=== PATIENT | male | born 1980 | race Caucasian/White ===

== ENCOUNTER 2021-07-27 19:41 | Inpatient (IN) | payer OTHER, SELFPAY ==
[2021-07-27 21:46] LABS: #Lymphocytes 2.6 thou/uL (1.20-3.40); %Eosinophils 1.9 % (0.0-10.0); %Lymphocytes 41.4 % (21.0-51.0); %Monocytes 7.5 % (0.0-10.0); %Neutrophils 48.1 % (42.0-75.0); Hemoglobin 16.4 g/dL (14.0-18.0); Mean Corpuscular HGB CONC 33.7 g/dL (32.0-36.0); Mean Corpuscular Hemoglobin 30.7 pg (27.0-31.0); Platelet Count 273 thou/uL (130-400); RBC Distribution Width 12.6 % (11.5-14.5); Red Blood Cell (RBC) Count 5.36 mill/uL (4.70-6.10); White Blood Cell (WBC) Count 6.2 thou/uL (4.8-10.8)
[2021-07-27 21:47] LABS: #Basophils 0.1 thou/uL (0.0-0.2); #Eosinphils 0.1 thou/uL (0.0-0.7); #Monocytes 0.5 thou/uL (0.11-0.59)
[2021-07-27 21:54] LABS: PTT 33.9 sec (22.9-36.1); Prothrombin Time 13.1 sec (12.0-14.7)
[2021-07-27 22:52] LABS: ALT (SGPT) 17 U/L (8-55); AST (SGOT) 23 U/L (5-34); Alkaline Phosphatase 54 U/L (40-110); Anion Gap 14 mmol/L (10-20); BUN (Urea Nitrogen) 5 mg/dL (8.9-20.6); Bilirubin, Total 0.5 mg/dL (0.2-1.2); Calc. Creatinine Clearance 0 mL/min (70-130); Calcium 8.7 mg/dL (7.8-10.44); Carbon Dioxide 21 mmol/L (22-29); Chloride 108 mmol/L (98-107); Globulin 2.7 g/dL (2.4-3.5); Glucose 85 mg/dL (70-105); Potassium 4.1 mmol/L (3.5-5.1); Protein, Total 6.7 g/dL (6.0-8.3); Sodium 139 mmol/L (136-145)
[2021-07-27] MEDS ORDERED: Aspirin 81 mg Enteric Coated Tablet ONE (23:11)
[2021-07-28] MEDS ORDERED: Diazepam 5 MG TAB PO PRN (03:35)
[2021-07-28] MEDS ORDERED: Nicotine 21 MG PATCH TD SCH (03:35)
[2021-07-28] MEDS ORDERED: Thiamine HCl 200 MG/2 ML VIAL IM SCH (03:35)
[2021-07-28] MEDS ORDERED: Acetaminophen 325 MG TAB ONE (03:56)
[2021-07-28] MEDS: Multivitamin W/ Minerals 1 TAB PO SCH (10:26)
[2021-07-28] MEDS: Folic Acid 1 MG TAB PO SCH (10:26)
[2021-07-28] MEDS: Nicotine 21 MG PATCH TD SCH (10:27)
[2021-07-28] MEDS: Sodium Chloride 0.9% 1,000 ML IV SCH ×2 (10:33→23:15)
[2021-07-28 10:48] LABS: SARS-CoV-2 NAA Rapid Test Not Detected (NotDetected)
[2021-07-28 11:28] LABS: Anion Gap 12 mmol/L (10-20); BUN (Urea Nitrogen) 8 mg/dL (8.9-20.6); Calc. Creatinine Clearance 0 mL/min (70-130); Calcium 8.8 mg/dL (7.8-10.44); Carbon Dioxide 25 mmol/L (22-29); Chloride 103 mmol/L (98-107); Glucose 96 mg/dL (70-105); Potassium 4.1 mmol/L (3.5-5.1); Sodium 136 mmol/L (136-145)
[2021-07-28 12:48] VITALS: BMI 24.7
[2021-07-28 13:06] LABS: Amphetamine Not Detected (NotDetected); Barbiturates Screen Not Detected (NotDetected); Benzodiazepine Screen Not Detected (NotDetected); Cocaine Metabolite Screen Not Detected (NotDetected); Methadone Not Detected (NotDetected); Methamphetamine Not Detected (NotDetected); Opiate Screen Not Detected (NotDetected); Oxycodone Screen Not Detected (NotDetected); Phencyclidine (PCP) Not Detected (NotDetected); THC/Cannabinoid Screen Not Detected (NotDetected); Tricyclic Screen Not Detected (NotDetected)
[2021-07-28 13:07] LABS: Hemoglobin 16.3 g/dL (14.0-18.0); Mean Corpuscular HGB CONC 33.8 g/dL (32.0-36.0); Mean Corpuscular Volume 91.7 fL (78.0-98.0); Mean Platelet Volume 7.2 fL (7.4-10.4); Platelet Count 283 thou/uL (130-400); RBC Distribution Width 12.7 % (11.5-14.5); Red Blood Cell (RBC) Count 5.25 mill/uL (4.70-6.10); White Blood Cell (WBC) Count 7.1 thou/uL (4.8-10.8)
[2021-07-28 13:08] LABS: #Basophils 0.1 thou/uL (0.0-0.2); #Eosinphils 0.3 thou/uL (0.0-0.7); #Lymphocytes 2.6 thou/uL (1.20-3.40); #Monocytes 0.5 thou/uL (0.11-0.59); #Neutrophils 3.7 thou/uL (1.40-6.50); %Basophils 0.9 % (0.0-1.0); %Eosinophils 3.6 % (0.0-10.0); %Lymphocytes 36.5 % (21.0-51.0)
[2021-07-28] MEDS ORDERED: Sodium Chloride 0.9% 1,000 ML IV SCH (15:30)
[2021-07-28 16:44] LABS: Troponin I Less than 0.010 ng/mL (< 0.028)
[2021-07-29] MEDS ORDERED: Diazepam 5 MG TAB PO PRN (03:37)
[2021-07-29] MEDS: Sodium Chloride 0.9% 1,000 ML IV SCH ×2 (04:46→19:52)
[2021-07-29 06:45] LABS: #Basophils 0.1 thou/uL (0.0-0.2); #Eosinphils 0.2 thou/uL (0.0-0.7); #Lymphocytes 2.6 thou/uL (1.20-3.40); #Monocytes 0.5 thou/uL (0.11-0.59); #Neutrophils 5.1 thou/uL (1.40-6.50); %Eosinophils 2.1 % (0.0-10.0); %Lymphocytes 30.6 % (21.0-51.0); %Neutrophils 60.3 % (42.0-75.0); Hemoglobin 17.6 g/dL (14.0-18.0); Mean Corpuscular HGB CONC 33.2 g/dL (32.0-36.0); Mean Corpuscular Hemoglobin 30.3 pg (27.0-31.0); Mean Corpuscular Volume 91.3 fL (78.0-98.0); Mean Platelet Volume 7.4 fL (7.4-10.4); Platelet Count 262 thou/uL (130-400); RBC Distribution Width 12.5 % (11.5-14.5); Red Blood Cell (RBC) Count 5.82 mill/uL (4.70-6.10); White Blood Cell (WBC) Count 8.4 thou/uL (4.8-10.8)
[2021-07-29 07:06] LABS: Anion Gap 14 mmol/L (10-20); BUN (Urea Nitrogen) 6 mg/dL (8.9-20.6); CRP (Inflammatory) Less than 0.50 mg/dL (= or < 0.5); Calc. Creatinine Clearance 125 mL/min (70-130); Calcium 9.1 mg/dL (7.8-10.44); Carbon Dioxide 21 mmol/L (22-29); Chloride 107 mmol/L (98-107); Glucose 83 mg/dL (70-105); Potassium 4.3 mmol/L (3.5-5.1); Sodium 138 mmol/L (136-145)
[2021-07-29 07:09] LABS: Cardiac Risk 3.7 (Less than 4.5)
[2021-07-29] MEDS: Magnesium Oxide 400 MG TAB PO SCH (09:04)
[2021-07-29] MEDS: Thiamine 100 MG TAB PO SCH (09:04)
[2021-07-29] MEDS: Multivitamin W/ Minerals 1 TAB PO SCH (09:04)
[2021-07-29] MEDS: Nicotine 21 MG PATCH TD SCH (09:04)
[2021-07-29] MEDS: Folic Acid 1 MG TAB PO SCH (09:04)
[2021-07-29] MEDS ORDERED: methylPREDNISolone Sod Succ 1,000 MG in Sodium Chloride 0.9% 100 ML IVPB SCH (15:00)
[2021-07-29] MEDS ORDERED: Aspirin 81 mg Enteric Coated Tablet PO SCH (16:45)
[2021-07-30] MEDS: Sodium Chloride 0.9% 1,000 ML IV SCH ×2 (08:12→12:28)
[2021-07-30] MEDS: Thiamine 100 MG TAB PO SCH (12:09)
[2021-07-30] MEDS: Multivitamin W/ Minerals 1 TAB PO SCH (12:09)
[2021-07-30] MEDS: Nicotine 21 MG PATCH TD SCH (12:09)
[2021-07-30] MEDS: Aspirin 81 mg Enteric Coated Tablet PO SCH (12:09)
[2021-07-30] MEDS: Magnesium Oxide 400 MG TAB PO SCH (12:09)
[2021-07-30] MEDS: Folic Acid 1 MG TAB PO SCH (12:09)
[2021-07-30] MEDS ORDERED: methylPREDNISolone Sod Succ 1,000 MG in Sodium Chloride 0.9% 250 ML 250 ML IVPB SCH (15:00)
[2021-07-30] MEDS ORDERED: ADENOSINE 60 MG/20 ML VIAL ONE (15:14)
[2021-07-31 06:17] LABS: #Basophils 0.1 thou/uL (0.0-0.2); #Eosinphils 0.1 thou/uL (0.0-0.7); #Lymphocytes 3.4 thou/uL (1.20-3.40); #Monocytes 0.7 thou/uL (0.11-0.59); #Neutrophils 7.1 thou/uL (1.40-6.50); %Basophils 0.6 % (0.0-1.0); %Eosinophils 0.8 % (0.0-10.0); %Lymphocytes 29.9 % (21.0-51.0); %Monocytes 6.1 % (0.0-10.0); %Neutrophils 62.6 % (42.0-75.0); Hemoglobin 16.4 g/dL (14.0-18.0); Mean Corpuscular Hemoglobin 30.2 pg (27.0-31.0); Mean Corpuscular Volume 91.8 fL (78.0-98.0); Platelet Count 282 thou/uL (130-400); RBC Distribution Width 12.6 % (11.5-14.5); Red Blood Cell (RBC) Count 5.42 mill/uL (4.70-6.10); White Blood Cell (WBC) Count 11.3 thou/uL (4.8-10.8)
[2021-07-31 06:38] LABS: Anion Gap 12 mmol/L (10-20); BUN (Urea Nitrogen) 15 mg/dL (8.9-20.6); Calc. Creatinine Clearance 107 mL/min (70-130); Calcium 8.8 mg/dL (7.8-10.44); Carbon Dioxide 24 mmol/L (22-29); Chloride 109 mmol/L (98-107); Glucose 93 mg/dL (70-105); Potassium 3.7 mmol/L (3.5-5.1); Sodium 141 mmol/L (136-145)
[2021-07-31] MEDS ORDERED: Iopamidol 370 76% 50 ML VIAL FS ONE (11:01)
[2021-07-31] MEDS ORDERED: Vancomycin 1.5 GRAM/300 ML BAG 1.5 GM in Premix Bag 1 BAG IVPB SCH (12:00)
[2021-07-31] MEDS ORDERED: Lidocaine 1% (PF) 30 ML VIAL ONE (12:22)
[2021-07-31] MEDS ORDERED: Clindamycin/D5W 900 mg/50 ml Premix Bag ONE (12:24)
[2021-07-31] MEDS ORDERED: Gentamicin 80 MG/2 ML VIAL ONE (12:24)
[2021-07-31] MEDS ORDERED: Midazolam HCl 2 mg/2 ml Vial ONE (13:59)
[2021-07-31] MEDS ORDERED: Fentanyl 100 MCG/2 ML VIAL ONE (14:00)
[2021-07-31] MEDS: Magnesium Oxide 400 MG TAB PO SCH (16:54)
[2021-07-31] MEDS: Folic Acid 1 MG TAB PO SCH (16:54)
[2021-07-31] MEDS: Aspirin 81 mg Enteric Coated Tablet PO SCH (16:54)
[2021-07-31] MEDS: Thiamine 100 MG TAB PO SCH (16:54)
[2021-07-31] MEDS: Nicotine 21 MG PATCH TD SCH (16:54)
[2021-07-31] MEDS: Multivitamin W/ Minerals 1 TAB PO SCH (16:55)
[2021-07-31] MEDS: HYDROcodone/Acetaminophen 5/325 mg Tablet PO PRN ×2 (17:00→21:49)
[2021-07-31] MEDS ORDERED: Amiodarone 150 MG, Admixture Fee 1 EACH in Dextrose 5% in Water 100 ML IVPB SCH (18:30)
[2021-07-31] MEDS ORDERED: Amiodarone In Dextrose 200 ML IVPB SCH (18:30)
[2021-07-31] MEDS ORDERED: Amiodarone 450 MG, Admixture Fee 1 EACH in Dextrose 5% in Water 250 ML IVPB SCH (18:30)
[2021-07-31 19:43] LABS: ALT (SGPT) 16 U/L (8-55); AST (SGOT) 17 U/L (5-34); Albumin 3.8 g/dL (3.5-5.0); Alkaline Phosphatase 48 U/L (40-110); Bilirubin, Direct 0.2 mg/dL (0.1-0.3); Bilirubin, Total 0.5 mg/dL (0.2-1.2); Magnesium 1.8 mg/dL (1.6-2.6); Protein, Total 6.4 g/dL (6.0-8.3)
[2021-07-31] MEDS: Minocycline HCl 50 MG CAP PO SCH (21:06)
[2021-08-01] MEDS: HYDROcodone/Acetaminophen 5/325 mg Tablet PO PRN ×3 (03:35→17:45)
[2021-08-01] MEDS: Magnesium Oxide 400 MG TAB PO SCH (08:47)
[2021-08-01] MEDS: Nicotine 21 MG PATCH TD SCH (08:47)
[2021-08-01] MEDS: Thiamine 100 MG TAB PO SCH (08:47)
[2021-08-01] MEDS: Multivitamin W/ Minerals 1 TAB PO SCH (08:47)
[2021-08-01] MEDS: Folic Acid 1 MG TAB PO SCH (08:47)
[2021-08-01] MEDS: Minocycline HCl 50 MG CAP PO SCH ×2 (08:47→21:21)
[2021-08-01 12:36] LABS: #Basophils 0.1 thou/uL (0.0-0.2); #Eosinphils 0.1 thou/uL (0.0-0.7); #Lymphocytes 2.4 thou/uL (1.20-3.40); #Neutrophils 10.8 thou/uL (1.40-6.50); %Basophils 0.6 % (0.0-1.0); %Eosinophils 0.5 % (0.0-10.0); %Lymphocytes 16.6 % (21.0-51.0); %Monocytes 7.1 % (0.0-10.0); %Neutrophils 75.2 % (42.0-75.0); Hemoglobin 17.6 g/dL (14.0-18.0); Mean Corpuscular HGB CONC 33.6 g/dL (32.0-36.0); Mean Corpuscular Hemoglobin 31.3 pg (27.0-31.0); Mean Platelet Volume 7.4 fL (7.4-10.4); Platelet Count 273 thou/uL (130-400); RBC Distribution Width 12.8 % (11.5-14.5); Red Blood Cell (RBC) Count 5.63 mill/uL (4.70-6.10); White Blood Cell (WBC) Count 14.3 thou/uL (4.8-10.8)
[2021-08-01 12:59] LABS: Anion Gap 12 mmol/L (10-20); BUN (Urea Nitrogen) 14 mg/dL (8.9-20.6); Calc. Creatinine Clearance 117 mL/min (70-130); Calcium 8.9 mg/dL (7.8-10.44); Carbon Dioxide 26 mmol/L (22-29); Chloride 103 mmol/L (98-107); Glucose 87 mg/dL (70-105); Potassium 4.2 mmol/L (3.5-5.1); Sodium 137 mmol/L (136-145)
[2021-08-01] MEDS: Acetaminophen 325 MG TAB PO PRN (21:20)
[2021-08-01] MEDS: Flecainide 50 MG TAB PO SCH (21:21)
[2021-08-02] MEDS: HYDROcodone/Acetaminophen 5/325 mg Tablet PO PRN ×2 (00:22→19:35)
[2021-08-02 05:40] LABS: #Basophils 0.1 thou/uL (0.0-0.2); #Eosinphils 0.2 thou/uL (0.0-0.7); #Lymphocytes 2.7 thou/uL (1.20-3.40); #Monocytes 0.7 thou/uL (0.11-0.59); %Basophils 1.1 % (0.0-1.0); %Eosinophils 2.3 % (0.0-10.0); %Lymphocytes 31.3 % (21.0-51.0); %Neutrophils 57.3 % (42.0-75.0); Hemoglobin 17.1 g/dL (14.0-18.0); Mean Corpuscular HGB CONC 32.9 g/dL (32.0-36.0); Mean Corpuscular Hemoglobin 30.6 pg (27.0-31.0); Mean Corpuscular Volume 92.9 fL (78.0-98.0); Platelet Count 264 thou/uL (130-400); RBC Distribution Width 12.7 % (11.5-14.5); Red Blood Cell (RBC) Count 5.61 mill/uL (4.70-6.10); White Blood Cell (WBC) Count 8.7 thou/uL (4.8-10.8)
[2021-08-02 06:16] LABS: Anion Gap 10 mmol/L (10-20); BUN (Urea Nitrogen) 12 mg/dL (8.9-20.6); Calc. Creatinine Clearance 112 mL/min (70-130); Calcium 8.9 mg/dL (7.8-10.44); Carbon Dioxide 27 mmol/L (22-29); Chloride 104 mmol/L (98-107); Glucose 91 mg/dL (70-105); Potassium 4.4 mmol/L (3.5-5.1); Sodium 137 mmol/L (136-145)
[2021-08-02] MEDS: Flecainide 50 MG TAB PO SCH ×2 (08:34→19:33)
[2021-08-02] MEDS: Magnesium Oxide 400 MG TAB PO SCH (08:34)
[2021-08-02] MEDS: Thiamine 100 MG TAB PO SCH (08:34)
[2021-08-02] MEDS: Nicotine 21 MG PATCH TD SCH (08:34)
[2021-08-02] MEDS: Multivitamin W/ Minerals 1 TAB PO SCH (08:34)
[2021-08-02] MEDS: Folic Acid 1 MG TAB PO SCH (08:34)
[2021-08-02] MEDS: Minocycline HCl 50 MG CAP PO SCH ×2 (08:37→19:34)
[2021-08-02] MEDS: Acetaminophen 325 MG TAB PO PRN ×2 (08:37→16:20)
[2021-08-02] MEDS ORDERED: Amiodarone 200 MG TAB PO SCH (09:38)
[2021-08-02 16:06] VITALS: BP 114/64; TEMP 98.2
== END 2021-08-02 19:43 | disposition home or self-care (01) | DRG 244 ==
LOC: ERS 19:41 → 3SE 07-28 01:23 → OBSVTOIN 07-30 12:14
PROVIDERS: ADMIT Student in an Organized Health Care Education/Training Program; ATTEND Internal Medicine
PROC: 0JH606Z Insertion of Pacemaker, Dual Chamber into Chest Subcutaneous Tissue and Fascia, Open Approach (ICD-10-PCS; principal; 2021-07-31)
PROC: 02H63JZ Insertion of Pacemaker Lead into Right Atrium, Percutaneous Approach (ICD-10-PCS; 2021-07-31)
PROC: 02HK3JZ Insertion of Pacemaker Lead into Right Ventricle, Percutaneous Approach (ICD-10-PCS; 2021-07-31)
DX: I49.5 Sick sinus syndrome (principal); F10.10 Alcohol abuse, uncomplicated; Z20.822 Contact with and (suspected) exposure to COVID-19; I95.1 Orthostatic hypotension; F17.210 Nicotine dependence, cigarettes, uncomplicated; I48.0 Paroxysmal atrial fibrillation; D72.829 Elevated white blood cell count, unspecified; Z88.0 Allergy status to penicillin; Z88.8 Allergy status to other drugs, medicaments and biological substances
CPT/HCPCS: 33208; 36415; 36416; 70450; 70551; 71045; 75820; 78452; 80048; 80053; 80061; 80076; 80306; 83735; 84443; 84484; 85025; 85379; 85610; 85652; 85730; 86140; 93005; 93010; 93017; 93306; 93798; 93880; 96365; 96372; 96375; 99152; 99153; A9500; C1785; C1898; G0378; J0153; J0282; J1580; J2001; J2250; J2930; J3010; J3370; J3411; J3475; J3490; J7050; J7070; Q9967; U0002

== ENCOUNTER 2021-10-12 16:46 | Emergency (ER) | payer OTHER | END 2021-10-12 18:50 | disposition home or self-care (01) | LOC: ERS 16:46 | DX: R07.9 Chest pain, unspecified (principal); F17.210 Nicotine dependence, cigarettes, uncomplicated; V23.4XXA Motorcycle driver injured in collision with car, pick-up truck or van in traffic accident, initial encounter | CPT/HCPCS: 99283 ==

== ENCOUNTER 2022-03-08 23:28 | Emergency (ER) | payer OTHER, SELFPAY ==
[~2022-03-08 23:28] MED LIST: Iopamidol-370 76% 500 ML 1 ML ONE
[2022-03-08] MEDS ORDERED: Boostrix 0.5 ML (Tdap) VIAL ONE (23:32)
[2022-03-08] MEDS ORDERED: Fentanyl 100 MCG/2 ML VIAL ONE (23:33)
[2022-03-09] MEDS ORDERED: Ketamine 50 MG/ML (10ML VIAL) ONE (00:05)
[2022-03-09 00:21] LABS: #Eosinphils 0.1 thou/uL (0.0-0.7); #Lymphocytes 1.5 thou/uL (1.20-3.40); #Monocytes 0.5 thou/uL (0.11-0.59); %Basophils 0.3 % (0.0-1.0); %Eosinophils 0.5 % (0.0-10.0); %Monocytes 3.1 % (0.0-10.0); %Neutrophils 86.1 % (42.0-75.0); Hemoglobin 13.6 g/dL (14.0-18.0); Mean Corpuscular HGB CONC 34.1 g/dL (32.0-36.0); Mean Corpuscular Hemoglobin 32.5 pg (27.0-31.0); Mean Corpuscular Volume 95.4 fL (78.0-98.0); Platelet Count 205 thou/uL (130-400); RBC Distribution Width 11.8 % (11.5-14.5); Red Blood Cell (RBC) Count 4.19 mill/uL (4.70-6.10)
[2022-03-09 00:40] LABS: ALT (SGPT) 34 U/L (8-55); Albumin 3.6 g/dL (3.5-5.0); Alcohol 101 mg/dL (Less than 10); Alkaline Phosphatase 33 U/L (40-110); Anion Gap 13 mmol/L (10-20); BUN (Urea Nitrogen) 10 mg/dL (8.9-20.6); Bilirubin, Total 0.3 mg/dL (0.2-1.2); Calc. Creatinine Clearance 0 mL/min (70-130); Calcium 7.8 mg/dL (7.8-10.44); Carbon Dioxide 19 mmol/L (22-29); Chloride 109 mmol/L (98-107); Globulin 2.1 g/dL (2.4-3.5); Glucose 105 mg/dL (70-105); Lipase 49 U/L (8-78); Potassium 3.6 mmol/L (3.5-5.1); Protein, Total 5.7 g/dL (6.0-8.3); Sodium 137 mmol/L (136-145)
[2022-03-09 01:10] LABS: AST (SGOT) 72 U/L (5-34)
[2022-03-09] MEDS ORDERED: HYDROcodone/Acetaminophen 5/325 mg Tablet ONE (02:42)
== END 2022-03-09 03:10 | disposition home or self-care (01) ==
LOC: ERS 23:28
DX: S09.90XA Unspecified injury of head, initial encounter (principal); S62.202A Unspecified fracture of first metacarpal bone, left hand, initial encounter for closed fracture; V89.2XXA Person injured in unspecified motor-vehicle accident, traffic, initial encounter
CPT/HCPCS: 29125; 36415; 70450; 71045; 71260; 72125; 72170; 74177; 80053; 80307; 83690; 85025; 86850; 86900; 86901; 90715; 96374; 96375; 96376; G0390; J3010; Q9967

== ENCOUNTER 2022-03-09 16:46 | Emergency (ER) | payer OTHER, SELFPAY ==
[2022-03-09] MEDS ORDERED: Bacitracin 1 PK ONE (19:09)
[2022-03-09] MEDS ORDERED: HYDROcodone/Acetaminophen 10/325 mg Tablet ONE (19:11)
[2022-03-09] MEDS ORDERED: Lidocaine 1% (PF) 30 ML VIAL ONE (20:26)
== END 2022-03-09 22:02 | disposition home or self-care (01) ==
LOC: ERS 16:46
DX: S62.311A Displaced fracture of base of second metacarpal bone, left hand, initial encounter for closed fracture (principal); S62.317A Displaced fracture of base of fifth metacarpal bone, left hand, initial encounter for closed fracture; S63.115A Dislocation of metacarpophalangeal joint of left thumb, initial encounter; S93.402A Sprain of unspecified ligament of left ankle, initial encounter; I48.91 Unspecified atrial fibrillation; F17.210 Nicotine dependence, cigarettes, uncomplicated; V20.4XXA Motorcycle driver injured in collision with pedestrian or animal in traffic accident, initial encounter
CPT/HCPCS: 26641; J2001

== ENCOUNTER 2022-03-11 15:36 | Outpatient (CLI) | payer SELFPAY, OTHER ==
[2022-03-12 00:12] LABS: SARS-CoV-2 PCR by NAA Not Detected (NotDetected)
== END 2022-03-11 15:37 | disposition home or self-care (01) ==
LOC: LABBT 15:36
PROVIDERS: ATTEND Orthopaedic Surgery Hand Surgery
DX: Z01.818 Encounter for other preprocedural examination (principal); Z20.822 Contact with and (suspected) exposure to COVID-19
CPT/HCPCS: 93005; 93010; U0003; U0005

== ENCOUNTER 2022-03-12 08:45 | Day surgery (SDC) | payer OTHER ==
[2022-03-11 15:12] VITALS: BMI 24.3
[2022-03-12] MEDS ORDERED: Levofloxacin 500 mg/D5W 100 ml Premix Bag ONE (11:42)
[2022-03-12] MEDS ORDERED: Clindamycin/D5W 900 mg/50 ml Premix Bag ONE (11:42)
[2022-03-12] MEDS ORDERED: Midazolam HCl 2 mg/2 ml Vial ONE (11:49)
[2022-03-12] MEDS ORDERED: HYDROmorphone 0.5 MG/0.5 ML SYRINGE ONE (11:49)
[2022-03-12] MEDS ORDERED: Ondansetron PF 4 MG/2 ML Vial ONE (11:55)
[2022-03-12] MEDS ORDERED: ePHEDrine 50 MG/ML VIAL ONE (11:55)
[2022-03-12] MEDS ORDERED: Dexamethasone 20 MG/5 ML VIAL ONE (11:55)
[2022-03-12] MEDS ORDERED: Lidocaine 1% PF 5 ML VIAL ONE (11:55)
[2022-03-12] MEDS ORDERED: PROPOFOL 200 MG/20 ML VIAL ONE (11:55)
[2022-03-12] MEDS ORDERED: Ketorolac Tromethamine 30 MG/ML VIAL ONE ×2 (11:55→14:08)
[2022-03-12] MEDS ORDERED: Bacitracin Zinc Ointment 30 gm TUBE ONE (12:49)
[2022-03-12] MEDS ORDERED: Bupivacaine PF 0.5% 30 ML VIAL ONE (12:49)
[2022-03-12] MEDS ORDERED: Neomycin-Polymyxin 1 ML AMP ONE (12:49)
[2022-03-12] MEDS ORDERED: Meperidine HCl/PF 25 MG/ML VIAL ONE (13:49)
[2022-03-12] MEDS ORDERED: Fentanyl 100 MCG/2 ML VIAL ONE (14:01)
[2022-03-12] MEDS ORDERED: Promethazine HCl 25 MG/ML VIAL ONE (14:16)
== END 2022-03-12 17:27 | disposition home or self-care (01) ==
LOC: SDC 08:45
PROVIDERS: ATTEND Orthopaedic Surgery Hand Surgery
PROC: 0PSQ34Z Reposition Left Metacarpal with Internal Fixation Device, Percutaneous Approach (ICD-10-PCS; principal; 2022-03-12)
PROC: 0HXEXZZ Transfer Left Lower Arm Skin, External Approach (ICD-10-PCS; principal; 2022-03-12)
PROC: 0HQDXZZ Repair Right Lower Arm Skin, External Approach (ICD-10-PCS; principal; 2022-03-12)
DX: S62.317A Displaced fracture of base of fifth metacarpal bone, left hand, initial encounter for closed fracture (principal); S62.311A Displaced fracture of base of second metacarpal bone, left hand, initial encounter for closed fracture; S63.045A Dislocation of carpometacarpal joint of left thumb, initial encounter; S51.001A Unspecified open wound of right elbow, initial encounter; S51.002A Unspecified open wound of left elbow, initial encounter; F17.200 Nicotine dependence, unspecified, uncomplicated; I48.91 Unspecified atrial fibrillation; I95.9 Hypotension, unspecified; Z79.2 Long term (current) use of antibiotics; Z88.0 Allergy status to penicillin; Z88.8 Allergy status to other drugs, medicaments and biological substances; Z95.0 Presence of cardiac pacemaker; V20.4XXA Motorcycle driver injured in collision with pedestrian or animal in traffic accident, initial encounter
CPT/HCPCS: 76000; J1100; J1170; J1885; J1956; J2175; J2250; J2405; J2550; J2704; J3010; J3490; S0020

== ENCOUNTER 2022-06-07 16:24 | Observation (INO) | payer SELFPAY ==
[2022-06-07 17:13] LABS: #Eosinphils 0.1 thou/uL (0.0-0.7); #Lymphocytes 1.6 thou/uL (1.20-3.40); #Monocytes 0.5 thou/uL (0.11-0.59); #Neutrophils 2.8 thou/uL (1.40-6.50); %Basophils 0.9 % (0.0-1.0); %Eosinophils 1.7 % (0.0-10.0); %Lymphocytes 31.9 % (21.0-51.0); %Neutrophils 56.5 % (42.0-75.0); Hemoglobin 14.4 g/dL (14.0-18.0); Mean Corpuscular HGB CONC 33.8 g/dL (32.0-36.0); Mean Corpuscular Hemoglobin 32.3 pg (27.0-31.0); Mean Corpuscular Volume 95.7 fL (78.0-98.0); Platelet Count 239 thou/uL (130-400); RBC Distribution Width 12.4 % (11.5-14.5); Red Blood Cell (RBC) Count 4.45 mill/uL (4.70-6.10)
[2022-06-07 17:33] LABS: ALT (SGPT) 18 U/L (8-55); AST (SGOT) 22 U/L (5-34); Alkaline Phosphatase 45 U/L (40-110); Anion Gap 15 mmol/L (10-20); BUN (Urea Nitrogen) 8 mg/dL (8.9-20.6); Bilirubin, Total 0.4 mg/dL (0.2-1.2); Calc. Creatinine Clearance 0 mL/min (70-130); Calcium 8.6 mg/dL (7.8-10.44); Carbon Dioxide 23 mmol/L (22-29); Chloride 109 mmol/L (98-107); Estimated GFR 113; Globulin 2.3 g/dL (2.4-3.5); Glucose 85 mg/dL (70-105); Potassium 3.9 mmol/L (3.5-5.1); Protein, Total 6.3 g/dL (6.0-8.3); Sodium 143 mmol/L (136-145)
[2022-06-07 17:41] LABS: Magnesium 2.1 mg/dL (1.6-2.6)
[2022-06-07 21:17] LABS: Troponin I Less than 0.010 ng/mL (< 0.028)
[2022-06-07 22:25] VITALS: BMI 23.4
[2022-06-08 00:27] LABS: Troponin I Less than 0.010 ng/mL (< 0.028)
[2022-06-08] MEDS ORDERED: Acetaminophen 325 MG TAB PO PRN (01:49)
[2022-06-08] MEDS ORDERED: Ondansetron PF 4 MG/2 ML Vial IVP PRN (01:49)
[2022-06-08] MEDS ORDERED: Nicotine 21 MG PATCH TD SCH (02:00)
[2022-06-08] MEDS ORDERED: Lorazepam 1 MG TAB PO PRN (02:05)
[2022-06-08] MEDS ORDERED: Lorazepam 2 MG/ML VIAL IM PRN (02:05)
[2022-06-08] MEDS ORDERED: Ondansetron ODT 4 MG TAB PO PRN (02:05)
[2022-06-08] MEDS ORDERED: Electrolyte Replacement Protocol 1 EACH FS SCH (02:15)
[2022-06-08] MEDS ORDERED: Thiamine HCl 200 MG/2 ML VIAL SLOW IVP SCH (02:15)
[2022-06-08] MEDS: Sodium Chloride 0.9% 1,000 ML IV SCH ×2 (02:56→14:35)
[2022-06-08] MEDS: Lorazepam 1 MG TAB PO SCH ×3 (02:56→15:17)
[2022-06-08 04:37] LABS: Amphetamine Not Detected (NotDetected); Barbiturates Screen Not Detected (NotDetected); Benzodiazepine Screen Not Detected (NotDetected); Cocaine Metabolite Screen Not Detected (NotDetected); Methadone Not Detected (NotDetected); Methamphetamine Not Detected (NotDetected); Opiate Screen Not Detected (NotDetected); Oxycodone Screen Not Detected (NotDetected); Phencyclidine (PCP) Not Detected (NotDetected); THC/Cannabinoid Screen Detected (NotDetected); Tricyclic Screen Not Detected (NotDetected)
[2022-06-08 05:02] LABS: Phosphorus 3.3 mg/dL (2.3-4.7)
[2022-06-08 05:04] LABS: Alcohol Less than 10 mg/dL (Less than 10); Magnesium 1.9 mg/dL (1.6-2.6)
[2022-06-08] MEDS ORDERED: Magnesium 2 GM/50 ML(in water) 2 GM in Premix Bag 1 BAG IVPB SCH (08:00)
[2022-06-08] MEDS ORDERED: Folic Acid 1 MG TAB PO SCH (09:00)
[2022-06-08] MEDS ORDERED: Enoxaparin Sodium 40 MG/0.4 ML SYRINGE SC SCH (09:00)
[2022-06-08] MEDS ORDERED: Multivit, Therapeutic 1 TAB PO SCH (09:00)
[2022-06-08 12:29] LABS: Syphilis Antibody Nonreactive (Nonreactive); Syphilis Antibody Index 0.03 S/CO (<1.00 Non-Reactive)
[2022-06-08 16:03] VITALS: BP 118/74; TEMP 98
[2022-06-08] MEDS ORDERED: Ciprofloxacin 0.2% Otic (0.25ML CONTAINER) R EAR SCH (21:00)
[2022-06-09] MEDS ORDERED: Lorazepam 1 MG TAB PO PRN (02:05)
[2022-06-10] MEDS ORDERED: Lorazepam 1 MG TAB PO PRN (02:05)
[2022-06-10] MEDS ORDERED: Lorazepam 0.5 MG TAB PO SCH (02:15)
[2022-06-11] MEDS ORDERED: Lorazepam 0.5 MG TAB PO PRN (02:05)
[2022-06-11] MEDS ORDERED: Thiamine 100 MG TAB PO SCH (09:00)
== END 2022-06-08 17:45 | disposition home or self-care (01) ==
LOC: ERS 16:24 → 2SW 20:07
PROVIDERS: ADMIT Hospitalist; ATTEND Hospitalist
DX: R55 Syncope and collapse (principal); I49.5 Sick sinus syndrome; F10.10 Alcohol abuse, uncomplicated; F17.210 Nicotine dependence, cigarettes, uncomplicated; I08.2 Rheumatic disorders of both aortic and tricuspid valves; Z88.0 Allergy status to penicillin; Z88.8 Allergy status to other drugs, medicaments and biological substances; Z95.810 Presence of automatic (implantable) cardiac defibrillator; Z20.822 Contact with and (suspected) exposure to COVID-19; Y90.5 Blood alcohol level of 100-119 mg/100 ml
CPT/HCPCS: 36415; 70450; 71045; 80053; 80306; 80307; 83735; 84100; 84443; 84484; 85025; 86780; 93005; 93306; 93880; 96360; 96361; 96372; 96374; 96375; G0378; J1650; J3411; J3475; J7050; U0003; U0005

== ENCOUNTER 2022-08-05 15:30 | Emergency (ER) | payer SELFPAY | END 2022-08-05 18:10 | disposition home or self-care (01) | LOC: ERS 15:30 | DX: M25.572 Pain in left ankle and joints of left foot (principal); F17.210 Nicotine dependence, cigarettes, uncomplicated ==

== ENCOUNTER 2022-08-06 15:40 | Outpatient (CLI) | payer SELFPAY ==
[2022-08-06 16:45] LABS: #Basophils 0.1 10x3/uL (0.0-0.2); #Monocytes 0.7 10x3/uL (0.0-1.1); #Neutrophils 6.9 10x3/uL (1.5-8.4); %Basophils 0.6 % (0.0-2.0); %Eosinophils 0.3 % (0.0-6.0); %Monocytes 7.1 % (0.0-10.0); %Neutrophils 73.7 % (40.0-75.0); Hemoglobin 15.4 g/dL (13.5-17.5); Mean Corpuscular HGB CONC 34.3 g/dL (32.0-36.0); Mean Corpuscular Volume 90.5 fl (81.2-95.1); Mean Platelet Volume 9.5 fl (7.4-10.4); Platelet Count 267 10x3/uL (150-450); RBC Distribution Width 13.2 % (11.5-14.5); Red Blood Cell (RBC) Count 4.96 10x6/uL (4.32-5.72); White Blood Cell (WBC) Count 9.4 10x3/uL (3.5-10.5)
== END 2022-08-06 15:41 | disposition home or self-care (01) ==
LOC: LABBT 15:40
PROVIDERS: ATTEND Orthopaedic Surgery Hand Surgery
DX: Z01.818 Encounter for other preprocedural examination (principal); Z20.822 Contact with and (suspected) exposure to COVID-19
CPT/HCPCS: 85025; 87811; 93005; 93010

== ENCOUNTER 2023-06-27 07:39 | Observation (INO) | payer SELFPAY ==
[2023-06-27 13:45] VITALS: BMI 21.4
[2023-06-27] MEDS ORDERED: Acetaminophen 325 MG TAB PO PRN (16:00)
[2023-06-27] MEDS: Sodium Chloride 0.9% 1,000 ML IV SCH (18:01)
[2023-06-28 04:16] LABS: #Eosinphils 0.2 thou/uL (0.0-0.7); #Monocytes 0.4 thou/uL (0.11-0.59); #Neutrophils 2.8 thou/uL (1.40-6.50); %Basophils 0.7 % (0.0-1.0); %Eosinophils 3.1 % (0.0-10.0); %Monocytes 7.2 % (0.0-10.0); %Neutrophils 45.8 % (42.0-75.0); Hematocrit 40.9 % (42.0-52.0); Hemoglobin 13.7 g/dL (14.0-18.0); Mean Corpuscular HGB CONC 33.5 g/dL (32.0-36.0); Mean Corpuscular Hemoglobin 30.2 pg (27.0-31.0); Mean Corpuscular Volume 90.1 fl (78.0-98.0); Mean Platelet Volume 9.3 fL (7.4-10.4); Platelet Count 283 10x3/uL (130-400); RBC Distribution Width 13.1 % (11.5-14.5); Red Blood Cell (RBC) Count 4.54 mill/uL (4.70-6.10); White Blood Cell (WBC) Count 6.1 10x3/uL (4.8-10.8)
[2023-06-28 04:43] LABS: Anion Gap 12 mmol/L (10-20); BUN (Urea Nitrogen) 13 mg/dL (8.9-20.6); Calc. Creatinine Clearance 95 mL/min (70-130); Calcium 8.8 mg/dL (7.8-10.44); Carbon Dioxide 25 mmol/L (22-29); Chloride 104 mmol/L (98-107); Estimated GFR 109; Glucose 106 mg/dL (70-105); Potassium 3.7 mmol/L (3.5-5.1); Sodium 137 mmol/L (136-145)
[2023-06-28] MEDS: Sodium Chloride 0.9% 1,000 ML IV SCH (10:14)
[2023-06-28 11:50] VITALS: BP 130/71; TEMP 97.7
== END 2023-06-28 17:00 | disposition home or self-care (01) ==
LOC: 2NO 13:05
PROVIDERS: ADMIT Student in an Organized Health Care Education/Training Program; ATTEND Internal Medicine
DX: R55 Syncope and collapse (principal); I49.5 Sick sinus syndrome; F10.10 Alcohol abuse, uncomplicated; N17.9 Acute kidney failure, unspecified; F15.10 Other stimulant abuse, uncomplicated; Z91.038 Other insect allergy status; Z88.0 Allergy status to penicillin; F17.210 Nicotine dependence, cigarettes, uncomplicated; Z95.0 Presence of cardiac pacemaker; Y90.9 Presence of alcohol in blood, level not specified
CPT/HCPCS: 36415; 80048; 85025; G0378; J7050

== ENCOUNTER 2024-10-24 17:28 | Inpatient (IN) | payer OTHER ==
[2024-10-24 18:06] VITALS: BMI 22.7
[2024-10-24] MEDS ORDERED: Acetaminophen 325 MG TAB PO PRN (18:39)
[2024-10-24] MEDS ORDERED: Ondansetron ODT 4 MG TAB PO PRN (18:39)
[2024-10-24 18:58] LABS: #Basophils 0.06 10x3/uL (0.0-0.2); %Eosinophils 3.4 % (0.0-10.0); %Lymphocytes 34.8 % (21.0-51.0); %Monocytes 7.3 % (0.0-10.0); %Neutrophils 53.5 % (42.0-75.0); Hematocrit 40.9 % (42.0-52.0); Mean Corpuscular HGB CONC 34.2 g/dL (32.0-36.0); Mean Corpuscular Hemoglobin 30.1 pg (27.0-31.0); Mean Platelet Volume 8.5 fL (7.4-10.4); Platelet Count 283 10x3/uL (130-400); RBC Distribution Width 12.8 % (11.5-14.5); Red Blood Cell (RBC) Count 4.65 mill/uL (4.70-6.10)
[2024-10-24 19:21] LABS: Troponin I Less than 0.010 ng/mL (< 0.028)
[2024-10-24 19:22] LABS: ALT (SGPT) 13 U/L (8-55); AST (SGOT) 19 U/L (5-34); Albumin 3.7 g/dL (3.5-5.0); Alkaline Phosphatase 54 U/L (40-110); Anion Gap 13 mmol/L (10-20); BUN (Urea Nitrogen) 10 mg/dL (8.9-20.6); Bilirubin, Total 0.4 mg/dL (0.2-1.2); Calc. Creatinine Clearance 108 mL/min (70-130); Calcium 8.3 mg/dL (7.8-10.44); Carbon Dioxide 18 mmol/L (22-29); Chloride 109 mmol/L (98-107); Estimated GFR 111; Globulin 2.6 g/dL (2.4-3.5); Glucose 133 mg/dL (70-105); Magnesium 2.2 mg/dL (1.6-2.6); Protein, Total 6.3 g/dL (6.0-8.3); Sodium 136 mmol/L (136-145)
[2024-10-24] MEDS ORDERED: Nitroglycerin 0.4 MG TAB (25 Tab Bottle) SL PRN (20:10)
[2024-10-24] MEDS: Aspirin 325 MG TAB PO SCH (20:54)
[2024-10-24] MEDS: Lactated Ringer's 1,000 ML IV SCH (20:54)
[2024-10-24 22:29] LABS: Troponin I Less than 0.010 ng/mL (< 0.028)
[2024-10-25 06:53] LABS: Cardiac Risk 3.3 (Less than 4.5)
[2024-10-25] MEDS: Aspirin Chewable 81 MG TAB PO SCH (09:33)
[2024-10-25 13:17] VITALS: BMI 22.7
[2024-10-25] MEDS: Nicotine 21 MG PATCH TOP SCH (15:06)
[2024-10-26 04:59] LABS: #Basophils 0.05 10x3/uL (0.0-0.2); %Basophils 0.7 % (0.0-1.0); %Eosinophils 2.5 % (0.0-10.0); %Monocytes 6.1 % (0.0-10.0); %Neutrophils 56.6 % (42.0-75.0); Hematocrit 46.6 % (42.0-52.0); Hemoglobin 15.6 g/dL (14.0-18.0); Mean Corpuscular HGB CONC 33.5 g/dL (32.0-36.0); Mean Corpuscular Hemoglobin 29.4 pg (27.0-31.0); Mean Corpuscular Volume 87.8 fL (78.0-98.0); Mean Platelet Volume 8.6 fL (7.4-10.4); Platelet Count 328 10x3/uL (130-400); RBC Distribution Width 12.9 % (11.5-14.5); Red Blood Cell (RBC) Count 5.31 mill/uL (4.70-6.10)
[2024-10-26 05:21] LABS: Anion Gap 13 mmol/L (10-20); BUN (Urea Nitrogen) 9 mg/dL (8.9-20.6); Calc. Creatinine Clearance 100 mL/min (70-130); Carbon Dioxide 24 mmol/L (22-29); Chloride 104 mmol/L (98-107); Estimated GFR 108; Glucose 96 mg/dL (70-105); Potassium 3.9 mmol/L (3.5-5.1); Sodium 137 mmol/L (136-145)
[2024-10-26] MEDS: levETIRAcetam 500 MG (5 mL) VIAL SLOW IVP SCH ×3 (13:02→22:03)
[2024-10-26] MEDS ORDERED: Regadenoson 0.4 MG/5 ML SYRINGE ONE (13:18)
[2024-10-26] MEDS: Nicotine 14 MG PATCH TOP PRN (21:06)
[2024-10-26] MEDS: Ondansetron PF 4 MG/2 ML Vial IVP PRN (22:09)
[2024-10-26] MEDS ORDERED: Lorazepam 2 MG/ML VIAL SLOW IVP PRN (23:22)
[2024-10-27] MEDS: Fioricet 325/50/40 mg Tablet PO PRN (03:40)
[2024-10-27 08:46] VITALS: BP 116/79; TEMP 98.2
== END 2024-10-27 16:38 | disposition home or self-care (01) | DRG 312 ==
LOC: OBS 17:28 → CCU 10-25 08:55 → OBS 10-25 08:55 → OBSVTOIN 10-25 12:56
PROVIDERS: ADMIT Internal Medicine; ATTEND Internal Medicine
PROC: 4A00X4Z Measurement of Central Nervous Electrical Activity, External Approach (ICD-10-PCS; 2024-10-25)
PROC: XX20X89 Monitoring of Brain Electrical Activity, Computer-aided Detection and Notification, New Technology Group 9 (ICD-10-PCS; principal; 2024-10-27)
DX: R55 Syncope and collapse (principal); I50.22 Chronic systolic (congestive) heart failure; R56.9 Unspecified convulsions; R07.2 Precordial pain; I49.5 Sick sinus syndrome; F17.290 Nicotine dependence, other tobacco product, uncomplicated; F15.10 Other stimulant abuse, uncomplicated; F17.210 Nicotine dependence, cigarettes, uncomplicated; F10.10 Alcohol abuse, uncomplicated; Z95.0 Presence of cardiac pacemaker; Z71.51 Drug abuse counseling and surveillance of drug abuser; Z88.8 Allergy status to other drugs, medicaments and biological substances; Z88.0 Allergy status to penicillin; Z91.048 Other nonmedicinal substance allergy status
CPT/HCPCS: 36415; 70450; 70551; 78452; 80048; 80061; 83735; 84146; 84443; 85025; 93017; 93306; 94760; 95700; 95705; 95711; 95957; A9502; G0378; J1953; J2405; J2785